=== PATIENT | male | born 1955 | race Caucasian/White ===

== ENCOUNTER 2016-12-30 17:30 | Emergency (ER) | payer OTHER ==
[2016-12-30] MEDS ORDERED: Diphtheria,Pertussis(Acell),Tetanus Vaccine 0.5 ML SDV IM ONE (19:31)
--- NOTE | 2016-12-30 19:33 | EDM.PDOC ---
ED HPI GENERAL MEDICAL PROBLEM - General Chief Complaint: Laceration Stated Complaint: FINGER IS CUT, [id number] Time Seen by Provider: 12/30/16 19:28 Source of Information: Reports: Patient History Limitations: Reports: No Limitations - History of Present Illness INITIAL COMMENTS - FREE TEXT/NARRATIVE: cut by [employer]. bleeding has stopped but tetanus out of date. Left Hand Pain Score (Numeric/FACES): 2 - Related Data Allergies Allergy/AdvReac Type Severity Reaction Status Date / Time No Known Allergies Allergy Verified 12/30/16 17:44 Home Meds: Home Meds Aspirin/Acetaminophen/Caffeine [Janette Migraine Formula Caplet] 2 cap PO DAILY PRN 09/02/13 [History] Tadalafil [Cialis] 20 mg PO DAILY PRN 09/02/13 [History] Aspirin [Halfprin] 81 mg PO BRK 12/30/16 [History] Cyclobenzaprine [Flexeril] 10 mg PO ASDIRECTED PRN 12/30/16 [History] traMADol [Ultram] 50 mg PO ASDIRECTED PRN 12/30/16 [History] Past Medical History HEENT History: Reports: None, Impaired Vision Other HEENT History: wears glasses Cardiovascular History: Reports: None Respiratory History: Reports: None Gastrointestinal History: Reports: Other (See Below) 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 Genitourinary History: Reports: Other (See Below) Other Genitourinary History: ERECTILE DYSFUNCTION Musculoskeletal History: Reports: Back Pain, Chronic Other Musculoskeletal History: INGROWN GREAT TOENAIL BILAT; CHRONIC LOW BACK PAIN MAINTAINED WITH PT Neurological History: Reports: None Psychiatric History: Reports: None Endocrine/Metabolic History: Reports: None Hematologic History: Reports: None Immunologic History: Reports: None Oncologic (Cancer) History: Reports: None Dermatologic History: Reports: None - Infectious Disease History Infectious Disease History: Reports: Chicken Pox, Measles, Mumps - Past Surgical History Head Surgeries/Procedures: Reports: None HEENT Surgical History: Reports: None Cardiovascular Surgical History: Reports: None GI Surgical History: Reports: Colonoscopy, Hernia, Inguinal, Other (See Below) Musculoskeletal Surgical History: Reports: Arthroscopic Knee Social & Family History - Tobacco Use Smoking Status *Q: Never Smoker Used Tobacco, but Quit: No Second Hand Smoke Exposure: No - Caffeine Use Caffeine Use: Reports: Soda - Alcohol Use Days Per Week of Alcohol Use: 2 - Recreational Drug Use Recreational Drug Use: No ED ROS GENERAL - Review of Systems Review Of Systems: ROS reveals no pertinent complaints other than HPI. ED EXAM, SKIN/RASH Exam: See Below Exam Limited By: No Limitations General Appearance: Alert, WD/WN, No Apparent Distress Ears: Hearing Grossly Normal Throat/Mouth: Normal Voice, No Airway Compromise Head: Atraumatic Neck: Non-Tender, Full Range of Motion Respiratory/Chest: No Respiratory Distress Cardiovascular: Regular Rate, Rhythm GI/Abdominal: Soft, Non-Tender Extremities: Other (left 4th dorsal spfl lac' NV wnl, good ROM) Neurological: Alert, Oriented, Normal Cognition, Normal Gait, No Motor/Sensory Deficits Psychiatric: Normal Affect, Normal Mood Skin: Warm, Dry, Normal Color Lymphatic: No Adenopathy ED SKIN PROCEDURES - Laceration/Wound Repair Left Finger Lac/Wound length In cm: 1 (dorasl left finger) Appearance: Superficial, Linear, Clean Distal NVT: Neuro & Vascular Intact, No Tendon Injury Skin Prep: Chlorhexidine (Hibiciens) Exploration/Debridement/Repair: Wound Explored, In a Bloodless Field Closed with: Dermabond Sterile Dressing Applied: Provider Tetanus Status Addressed: Yes Complications: No Course - Vital Signs Last Recorded V/S: Last Vital Signs Temp 36.8 C 12/30/16 17:40 Pulse 97 12/30/16 17:40 Resp 16 12/30/16 17:40 BP 122/82 12/30/16 17:40 Pulse Ox 97 12/30/16 17:40 Departure - Departure Time of Disposition: 19:31 Disposition: Home, Self-Care 01 Condition: Good Clinical Impression: Finger laceration Qualifiers: Encounter type: initial encounter Finger: ring finger Damage to nail status: without damage Foreign body presence: without foreign body Laterality: left Qualified Code(s): S61.215A - Laceration without foreign body of left ring finger without damage to nail, initial encounter - Discharge Information Instructions: Stitches, [place], or Adhesive Wound Closure, [id number] Forms: ED Department Discharge Additional Instructions: 1) keep wound clean dry covered 2) recheck if looks infected
[2016-12-30 20:08] VITALS: BP 120/81
== END 2016-12-30 19:48 | disposition home or self-care (01) ==
LOC: DL.ED 17:30
DX: S61.215A Laceration without foreign body of left ring finger without damage to nail, initial encounter (principal); Z23 Encounter for immunization; Z79.82 Long term (current) use of aspirin; Z79.899 Other long term (current) drug therapy; W45.8XXA Other foreign body or object entering through skin, initial encounter
CPT/HCPCS: 12001; 90471; 90715; 99282

== ENCOUNTER 2020-08-01 09:41 | Emergency (ER) | payer MEDICARE, OTHER ==
[2020-08-01] MEDS ORDERED: diphenhydrAMINE 50 MG/ML SDV IVPUSH ONE (09:49)
[2020-08-01 09:51] VITALS: BP 142/94; PULSE 90
--- NOTE | 2020-08-01 10:58 | CR ---
PROCEDURE INFORMATION: Exam: XR Chest Exam date and time: 08/01/2020 10:43 AM Age: 65 years old Clinical indication: Other: Dysphasia TECHNIQUE: Imaging protocol: XR of the chest Views: 1 view. COMPARISON: No relevant prior studies available. FINDINGS: Lungs: Mid inspiratory effort with resultant low lung volumes. Pleural spaces: Unremarkable. No pleural effusion. No pneumothorax. Heart/Mediastinum: Unremarkable. No cardiomegaly. Bones/joints: Unremarkable. IMPRESSION: No acute findings.
--- NOTE | 2020-08-01 10:58 | CT ---
PROCEDURE INFORMATION: Exam: CT Head Without Contrast Exam date and time: 08/01/2020 10:46 AM Age: 65 years old Clinical indication: Other: Dysphasia TECHNIQUE: Imaging protocol: Computed tomography of the head without contrast. Radiation optimization: All CT scans at this facility use at least one of these dose optimization techniques: automated exposure control; mA and/or kV adjustment per patient size (includes targeted exams where dose is matched to clinical indication); or iterative reconstruction. Other technique: STROKE PROTOCOL was implemented. COMPARISON: No relevant prior studies available. FINDINGS: Brain: Normal. No hemorrhage. Unremarkable white matter. No mass effect. Cerebral ventricles: No ventriculomegaly. Bones/joints: Unremarkable. No acute fracture. Paranasal sinuses: Visualized sinuses are unremarkable. No fluid levels. Mastoid air cells: Visualized mastoid air cells are well aerated. Soft tissues: Unremarkable. IMPRESSION: No acute intracranial abnormality. ASSESSMENT: ASPECTS ([place] Stroke Program Early CT Score) is 10. COMMENTS: If the symptoms that lead to this examination persist or worsen, or there is concern for CVA (which may not manifeston CT for the first 24-48 hours), close interval follow-up MRI (or followup CT if the patient cannot undergo MRI evaluation) could provide additional information; only if clinically indicated.
[2020-08-01 11:10] LABS: ANION GAP 13.2 mEq/L (7-13); CHLORIDE,CL 105 mmol/L (98-107); SODIUM,NA 141 mmol/L (136-145)
[2020-08-01 11:29] LABS: CORONAVIRUS COVID-19 NAA NEGATIVE (NEGATIVE)
[2020-08-01] MEDS ORDERED: methylPREDNISolone Sodium Succinate 125 MG/2 ML SDV IVPUSH ONE (11:44)
--- NOTE | 2020-08-01 11:52 | EDM.PDOC ---
ED HPI GENERAL MEDICAL PROBLEM - General Chief Complaint: Allergic Reaction Stated Complaint: UNABLE TO BREATHE, TONGUE SWELLING Time Seen by Provider: 08/01/20 10:05 Source of Information: Reports: Patient History Limitations: Reports: No Limitations - History of Present Illness INITIAL COMMENTS - FREE TEXT/NARRATIVE: This 65 yo male patient reports to the ED with difficulties swelling and swallowing that started this morning at about [id number]. 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 The patient has no facial droop or one sided weakness. The patient has no history of similar symptoms or previous CVA. Onset: Today Duration: Hour(s):, Constant Location: Reports: Face, Other Quality: Reports: Other Severity: Moderate Improves with: Reports: None Worsens with: Reports: None Context: Reports: Other Associated Symptoms: Reports: No Other Symptoms - Related Data Allergies Allergy/AdvReac Type Severity Reaction Status Date / Time No Known Allergies Allergy Verified 08/01/20 09:49 Home Meds: Home Meds Aspirin/Acetaminophen/Caffeine [Janette Migraine Formula Caplet] 2 cap PO DAILY PRN 09/02/13 [History] tadalafiL [Cialis] 20 mg PO DAILY PRN 09/02/13 [History] Aspirin [Halfprin] 81 mg PO BRK 12/30/16 [History] Cyclobenzaprine [Flexeril] 10 mg PO ASDIRECTED PRN 12/30/16 [History] traMADol [Ultram] 50 mg PO ASDIRECTED PRN 12/30/16 [History] Past Medical History HEENT History: Reports: None, Impaired Vision Other HEENT History: wears glasses Cardiovascular History: Reports: None Respiratory History: Reports: None Gastrointestinal History: Reports: Other (See Below) 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 Genitourinary History: Reports: Other (See Below) Other Genitourinary History: ERECTILE DYSFUNCTION Musculoskeletal History: Reports: Back Pain, Chronic Other Musculoskeletal History: INGROWN GREAT TOENAIL BILAT; CHRONIC LOW BACK PAIN MAINTAINED WITH PT Neurological History: Reports: None Psychiatric History: Reports: None Endocrine/Metabolic History: Reports: None Hematologic History: Reports: None Immunologic History: Reports: None Oncologic (Cancer) History: Reports: None Dermatologic History: Reports: None - Infectious Disease History Infectious Disease History: Reports: Chicken Pox, Measles, Mumps - Past Surgical History Head Surgeries/Procedures: Reports: None HEENT Surgical History: Reports: None Cardiovascular Surgical History: Reports: None GI Surgical History: Reports: Colonoscopy, Hernia, Inguinal, Other (See Below) Other GI Surgeries/Procedures: FLEXIBLE SIGMOIDOSCOPY Male Surgical History: Reports: Vasectomy Musculoskeletal Surgical History: Reports: Arthroscopic Knee Other Musculoskeletal Surgeries/Procedures:: ROTATOR CUFF REPAIR RIGHT; KNEE ARTHROSCOPY RIGHT; RIGHT GREAT TOENAIL REMOVAL; INGUINAL LYMPH NODE BIOPSY. Surgery R foot w/boot Social & Family History - Tobacco Use Tobacco Use Status *Q: Never Tobacco User Second Hand Smoke Exposure: No - Caffeine Use Caffeine Use: Reports: None ED ROS ALLERGIC REACTION - Review of Systems Review Of Systems: Comprehensive ROS is negative, except as noted in HPI. ED EXAM GENERAL NO PERIP PULSE - Physical Exam Exam: See Below Exam Limited By: No Limitations General Appearance: Alert, WD/WN, Mild Distress Eye Exam: Bilateral Eye: EOMI, Normal Inspection, PERRL Ears: Normal External Exam, Normal Canal, Hearing Grossly Normal, Normal TMs Nose: Normal Inspection, Normal Mucosa, No Blood Throat/Mouth: Normal Inspection, Normal Lips, Normal Teeth, Normal Gums, Normal Voice, No Airway Compromise, Other (redness of posterior pharynx) Head: Atraumatic, Normocephalic Neck: Normal Inspection, Supple, Non-Tender, Full Range of Motion Respiratory/Chest: No Respiratory Distress, Lungs Clear, Normal Breath Sounds, No Accessory Muscle Use, Chest Non-Tender Cardiovascular: Normal Peripheral Pulses, Regular Rate, Rhythm, No Edema, No Gallop, No JVD, No Murmur, No Rub GI/Abdominal: Normal Bowel Sounds, Soft, Non-Tender, No Organomegaly, No Distention, No Abnormal Bruit, No Mass (Male) Exam: Deferred Rectal (Males) Exam: Deferred Back Exam: Normal Inspection, Full Range of Motion, NT Extremities: Normal Inspection, Normal Range of Motion, Non-Tender, Normal Capillary Refill, No Pedal Edema Neurological: Alert, Oriented, CN II-XII Intact, Normal Cognition, Normal Gait, Normal Reflexes, No Motor/Sensory Deficits Psychiatric: Normal Affect, Normal Mood Skin Exam: Warm, Dry, Intact, Normal Color, No Rash Lymphatic: No Adenopathy Course - Vital Signs Last Recorded V/S: Last Vital Signs Temp 36.6 C 08/01/20 09:48 Pulse 90 08/01/20 09:48 Resp 16 08/01/20 09:48 BP 142/94 H 08/01/20 09:48 Pulse Ox 98 08/01/20 09:48 - Orders/Labs/Meds Orders: Active Orders 24 hr Category Date Time Status CULTURE STREP A CONFIRMATION [] Stat Lab 08/01/20 10:37 Results STREP SCRN A RAPID W CULT CONF [] Stat Lab 08/01/20 10:40 Ordered Labs: Laboratory Tests 08/01/20 08/01/20 08/01/20 Range/Units 10:37 10:45 10:45 WBC 7.4 (5.0-10.0) 10^3/uL RBC 4.78 (4.6-6.2) 10^6/uL Hgb 14.7 (14.0-18.0) g/dL Hct 42.7 (40.0-54.0) % MCV 89.3 (80-100) fL MCH 30.8 (27.0-34.0) pg MCHC 34.4 (33.0-35.0) g/dL Plt Count 235 (150-450) 10^3/uL Neut % (Auto) 64.8 (42.2-75.2) % Lymph % (Auto) 22.3 (20.5-50.1) % Bertie % (Auto) 7.9 (2-8) % Eos % (Auto) 3.9 H (1.0-3.0) % Baso % (Auto) 1.1 H (0.0-1.0) % Sodium 141 (136-145) mmol/L Potassium 4.2 (3.5-5.1) mmol/L Chloride 105 (98-107) mmol/L Carbon Dioxide 27 (21-32) mmol/L Anion Gap 13.2 H (7-13) mEq/L BUN 16 (7-18) mg/dL Creatinine 1.00 (0.70-1.30) mg/dL Est Cr Clr Drug Dosing 64.69 mL/min Estimated GFR (MDRD) > 60 BUN/Creatinine Ratio 16.0 (No establ ref range) Glucose 93 (74-99) mg/dL Calcium 8.5 (8.5-10.1) mg/dL Total Bilirubin 0.9 (0.2-1.0) mg/dL AST 21 (15-37) U/L ALT 46 (16-63) U/L Alkaline Phosphatase 99 (46-116) U/L C-Reactive Protein < 0.2 (0.0-0.9) mg/dL Total Protein 7.3 (6.4-8.2) g/dL Albumin 3.7 (3.4-5.0) g/dL Globulin 3.6 Albumin/Globulin Ratio 1.0 Influenza Type A RNA Negative (NEGATIVE) Influenza Type B RNA Negative (NEGATIVE) SARS-CoV-2 RNA (NORA) Negative (NEGATIVE) Meds: Medications Discontinued Medications Generic Name Dose Route Start Last Admin Trade Name Freq PRN Reason Stop Dose Admin Diphenhydramine HCl 50 mg 08/01/20 09:49 08/01/20 09:54 Diphenhydramine 50 Mg/Ml Sdv IVPUSH 08/01/20 09:50 50 mg ONETIME ONE Administration Methylprednisolone Sodium Succinate 125 mg 08/01/20 11:44 Methylprednisolone Sodium Succinate 125 Mg/2 Ml Sdv IVPUSH 08/01/20 11:45 ONETIME ONE Departure - Departure Time of Disposition: 11:55 Disposition: Home, Self-Care 01 Condition: Fair Clinical Impression: Dyspnea Qualifiers: Dyspnea type: unspecified Qualified Code(s): R06.00 - Dyspnea, unspecified - Discharge Information *PRESCRIPTION DRUG MONITORING PROGRAM REVIEWED*: Not Applicable *COPY OF PRESCRIPTION DRUG MONITORING REPORT IN PATIENT DORIAN: Not Applicable Care Plan Goals: The patient was advised of the examination, lab, x-ray and CT results during the visit. The patient was given an IV dose of Benadryl and SoluMedrol during the visit. The patient was discharged with a script for Prednisone (20 mg) #10 to take 2 by mouth daily for 5 days. If the patient has any additional symptoms or concerns, the patient should either return to the emergency department or visit his primary care facility. Sepsis Event Note (ED) - Evaluation Sepsis Screening Result: No Definite Risk - Focused Exam Vital Signs: Vital Signs Temp Pulse Resp BP Pulse Ox 08/01/20 09:48 36.6 C 90 16 142/94 H 98 - My Orders Last 24 Hours: My Active Orders 08/01/20 10:37 CULTURE STREP A CONFIRMATION [RM] Stat 08/01/20 10:40 STREP SCRN A RAPID W CULT CONF [RM] Stat - Assessment/Plan Last 24 Hours: My Active Orders 08/01/20 10:37 CULTURE STREP A CONFIRMATION [RM] Stat 08/01/20 10:40 STREP SCRN A RAPID W CULT CONF [RM] Stat
== END 2020-08-01 12:10 | disposition home or self-care (01) ==
LOC: DL.ED 09:41
DX: R06.00 Dyspnea, unspecified (principal); Z20.822 Contact with and (suspected) exposure to COVID-19
CPT/HCPCS: 0240U; 36415; 70450; 71045; 80053; 85025; 86140; 87081; 87430; 96374; 96375; 99284; J1200; J2930

== ENCOUNTER 2020-08-02 08:13 | Inpatient (IN) | payer MEDICARE, OTHER ==
[2020-08-02 09:51] LABS: ANION GAP 13.7 mEq/L (7-13); CHLORIDE,CL 107 mmol/L (98-107); SODIUM,NA 143 mmol/L (136-145)
--- NOTE | 2020-08-02 09:54 | EDM.PDOC ---
ED HPI GENERAL MEDICAL PROBLEM - General Chief Complaint: General Stated Complaint: LOST MOBILITY OF RIGHT HAND Time Seen by Provider: 08/02/20 08:45 Source of Information: Reports: Patient, RN, RN Notes Reviewed History Limitations: Reports: No Limitations - History of Present Illness INITIAL COMMENTS - FREE TEXT/NARRATIVE: Patient is a 65-year-old male who presents to ER with complaint of right-handed weakness. Patient was seen in the ER yesterday with complaint of swelling of the tongue and difficulty swallowing. Yesterday labs were benign, head CT negative. Patient given Solu-Medrol and Benadryl with some improvement. Today states tongue still feels somewhat swollen but is improved, no difficulty swallowing. Only complaint is weakness of the right hand and inability to do day-to-day chores with the right hand. Denies any numbness or tingling. Is able to hold the arm out and in front of him for 10 seconds or longer without drift. Otherwise NIHSS negative. 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 Genitourinary History: Reports: Other (See Below) Other Genitourinary History: ERECTILE DYSFUNCTION Musculoskeletal History: Reports: Back Pain, Chronic Other Musculoskeletal History: INGROWN GREAT TOENAIL BILAT; CHRONIC LOW BACK PAIN MAINTAINED WITH PT Neurological History: Reports: None Psychiatric History: Reports: None Endocrine/Metabolic History: Reports: None Hematologic History: Reports: None Immunologic History: Reports: None Oncologic (Cancer) History: Reports: None Dermatologic History: Reports: None - Infectious Disease History Infectious Disease History: Reports: Chicken Pox, Measles, Mumps - Past Surgical History Head Surgeries/Procedures: Reports: None HEENT Surgical History: Reports: None Cardiovascular Surgical History: Reports: None GI Surgical History: Reports: Colonoscopy, Hernia, Inguinal, Other (See Below) Other GI Surgeries/Procedures: FLEXIBLE SIGMOIDOSCOPY Male Surgical History: Reports: Vasectomy Musculoskeletal Surgical History: Reports: Arthroscopic Knee Other Musculoskeletal Surgeries/Procedures:: ROTATOR CUFF REPAIR RIGHT; KNEE ARTHROSCOPY RIGHT; RIGHT GREAT TOENAIL REMOVAL; INGUINAL LYMPH NODE BIOPSY. Surgery R foot w/boot Social & Family History - Family History Family Medical History: No Pertinent Family History - Tobacco Use Tobacco Use Status *Q: Never Tobacco User Second Hand Smoke Exposure: No - Caffeine Use Caffeine Use: Reports: None - Recreational Drug Use Recreational Drug Use: No ED ROS GENERAL - Review of Systems Review Of Systems: Comprehensive ROS is negative, except as noted in HPI. ED EXAM, GENERAL - Physical Exam Exam: See Below Exam Limited By: No Limitations General Appearance: Alert, WD/WN, No Apparent Distress, Anxious Eye Exam: Bilateral Eye: EOMI, Normal Inspection, PERRL (3, brisk) Ears: Normal External Exam, Hearing Grossly Normal Nose: Normal Inspection Throat/Mouth: Normal Inspection, Normal Lips, Normal Teeth, Normal Gums, Normal Oropharynx, Normal Voice, No Airway Compromise Head: Atraumatic, Normocephalic Neck: Normal Inspection, Supple, Non-Tender, Full Range of Motion Respiratory/Chest: No Respiratory Distress, Lungs Clear, Normal Breath Sounds, No Accessory Muscle Use, Chest Non-Tender Cardiovascular: Normal Peripheral Pulses, Regular Rate, Rhythm, No Edema, No Gallop, No JVD, No Murmur, No Rub Peripheral Pulses: 2+: Radial (L), Radial (R) GI/Abdominal: Normal Bowel Sounds, Soft, Non-Tender (Male) Exam: Deferred Rectal (Males) Exam: Deferred Back Exam: Normal Inspection, Full Range of Motion, NT Extremities: Normal Inspection, Normal Range of Motion, Non-Tender, No Pedal Edema, Normal Capillary Refill, Other (Wearing a walking boot on right foot for bunion surgery, right hand weakness) Neurological: Alert, Oriented, CN II-XII Intact, Normal Cognition, Normal Gait, Normal Reflexes, No Motor/Sensory Deficits Psychiatric: Normal Affect, Normal Mood, Anxious Skin Exam: Warm, Dry, Intact, Normal Color, No Rash Lymphatic: No Adenopathy Course - Vital Signs Last Recorded V/S: Last Vital Signs Temp 98.8 F 08/02/20 08:26 Pulse 95 08/02/20 08:26 Resp 18 08/02/20 08:26 BP 148/97 H 08/02/20 08:26 Pulse Ox 97 08/02/20 08:26 - Orders/Labs/Meds Orders: Active Orders 24 hr Category Date Time Status UA W/ZACKERY RFLX IF INDICATED [URIN] Stat Lab 08/02/20 09:15 Ordered Medication Orders Acetaminophen (Acetaminophen 325 Mg Tab) 650 mg PO Q4H PRN PRN Reason: Pain (Mild 1-3)/fever Aspirin (Aspirin 81 Mg Tab.Chew) 81 mg PO DAILY [facility] Aspirin (Aspirin 325 Mg Tab.Ec) 325 mg PO ONETIME ONE Stop: 08/02/20 11:16 Clopidogrel Bisulfate (Clopidogrel 75 Mg Tab) 75 mg PO DAILY [facility] Enoxaparin Sodium (Enoxaparin 40 Mg/0.4 Ml Syringe) 40 mg SUBCUT DAILY [facility] Labs: Laboratory Tests 08/02/20 08/02/20 08/02/20 Range/Units 09:23 09:23 09:23 WBC 16.0 H (5.0-10.0) 10^3/uL RBC 4.73 (4.6-6.2) 10^6/uL Hgb 14.4 (14.0-18.0) g/dL Hct 42.2 (40.0-54.0) % MCV 89.2 (80-100) fL MCH 30.4 (27.0-34.0) pg MCHC 34.1 (33.0-35.0) g/dL Plt Count 240 (150-450) 10^3/uL Neut % (Auto) 81.5 H (42.2-75.2) % Lymph % (Auto) 12.3 L (20.5-50.1) % Lares % (Auto) 5.7 (2-8) % Eos % (Auto) 0.2 L (1.0-3.0) % Baso % (Auto) 0.3 (0.0-1.0) % PT 10.4 (9.0-12.0) SEC INR 1.0 (0.9-1.2) Sodium 143 (136-145) mmol/L Potassium 3.7 (3.5-5.1) mmol/L Chloride 107 (98-107) mmol/L Carbon Dioxide 26 (21-32) mmol/L Anion Gap 13.7 H (7-13) mEq/L BUN 18 (7-18) mg/dL Creatinine 0.97 (0.70-1.30) mg/dL Est Cr Clr Drug Dosing 78.71 mL/min Estimated GFR (MDRD) > 60 BUN/Creatinine Ratio 18.6 (No establ ref range) Glucose 131 H (74-99) mg/dL Calcium 8.7 (8.5-10.1) mg/dL Total Bilirubin 1.0 (0.2-1.0) mg/dL AST 23 (15-37) U/L ALT 61 (16-63) U/L Alkaline Phosphatase 95 (46-116) U/L Troponin I < 0.017 (0.000-0.056) ng/mL Total Protein 7.0 (6.4-8.2) g/dL Albumin 3.4 (3.4-5.0) g/dL Globulin 3.6 Albumin/Globulin Ratio 0.9 Meds: Medications Generic Name Dose Route Start Last Admin Trade Name Freq PRN Reason Stop Dose Admin Acetaminophen 650 mg 08/02/20 10:27 Acetaminophen 325 Mg Tab PO Q4H PRN Pain (Mild 1-3)/fever Aspirin 81 mg 08/03/20 09:00 Aspirin 81 Mg Tab.Chew PO DAILY [facility] Aspirin 325 mg 08/02/20 11:15 Aspirin 325 Mg Tab.Ec PO 08/02/20 11:16 ONETIME ONE Clopidogrel Bisulfate 75 mg 08/03/20 09:00 Clopidogrel 75 Mg Tab PO DAILY [facility] Enoxaparin Sodium 40 mg 08/03/20 09:00 Enoxaparin 40 Mg/0.4 Ml Syringe SUBCUT DAILY [facility] Discontinued Medications Generic Name Dose Route Start Last Admin Trade Name Freq PRN Reason Stop Dose Admin Clopidogrel Bisulfate 300 mg 08/02/20 10:27 Clopidogrel 75 Mg Tab PO 08/02/20 10:28 ONETIME ONE - Re-Assessments/Exams Free Text/Narrative Re-Assessment/Exam: 08/02/20 11:16 Discuss[address] patient case with Dr. Ana Merino at the [facility]. She states she would be declining the patient for transfer and would like the patient transferred to a higher level of care with Neurology. Discussed patient case with Dr. Bustillo, Neurologist at [facility], who states the patient may have had a minor stroke. She states the patient could stay at [facility] in [place] and have an MRI performed and be monitored. If any changes the patient will be transferred to [facility]. Discussed patient case with Dr. Veras who agreed to accept the patient for acute admission. Also discussed the patient case with Ijeoma at the [facility] who is aware that Neurology has been involved and will work on payment. Departure - Departure Time of Disposition: 09:53 Disposition: Admitted As Inpatient 64 Condition: Good Clinical Impression: Stroke-like symptoms, Right hand weakness - Discharge Information *PRESCRIPTION DRUG MONITORING PROGRAM REVIEWED*: No *COPY OF PRESCRIPTION DRUG MONITORING REPORT IN PATIENT DORIAN: No Sepsis Event Note (ED) - Evaluation Sepsis Screening Result: No Definite Risk - Focused Exam Vital Signs: Vital Signs Temp Pulse Resp BP Pulse Ox 08/02/20 08:26 98.8 F 95 18 148/97 H 97 - My Orders Last 24 Hours: My Active Orders 08/02/20 09:15 UA W/ZACKERY RFLX IF INDICATED [URIN] Stat - Assessment/Plan Last 24 Hours: My Active Orders 08/02/20 09:15 UA W/ZACKERY RFLX IF INDICATED [URIN] Stat
[2020-08-02] MEDS ORDERED: Acetaminophen 325 MG Tab PO PRN (10:27)
[2020-08-02] MEDS ORDERED: Clopidogrel 75 MG Tab PO ONE (10:27)
[2020-08-02] MEDS ORDERED: Aspirin 325 MG Tab.EC PO ONE (11:15)
--- NOTE | 2020-08-02 11:35 | MR ---
PROCEDURE INFORMATION: Exam: MR Head Without Contrast Exam date and time: 08/02/2020 10:43 AM Age: 65 years old Clinical indication: Weakness, extremity; Right; Additional info: Acute CVA TECHNIQUE: Imaging protocol: MR of the head without contrast. COMPARISON: CT Head wo Cont 08/01/2020 10:46 AM FINDINGS: Brain: There are areas of restricted diffusion in left frontal lobe including precentral gyrus measuring up to 11 mm. There is no acute hemorrhage. There is no mass effect or midline shift. 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 Cerebral ventricles: Normal. No ventriculomegaly. Bones/joints: Unremarkable as visualized. Paranasal sinuses: There is small amount of mucosal thickening in ethmoid air cells. Mastoid air cells: No significant mastoid effusion. Orbital cavity: Unremarkable. Soft tissues: Unremarkable as visualized. Other vasculature: Flow voids in cervical bullous and cerebral venous structures appear patent. IMPRESSION: Acute infarct in left frontal lobe including precentral gyrus. No hemorrhage.
--- NOTE | 2020-08-02 16:32 | US ---
EXAMINATION: Carotid Comp SEX: Male AGE: 65 years CLINICAL HISTORY: 65-year-old male hospitalized with speech "difficulty" and right-sided weakness (acute CVA). CT head (01 August 2020) revealed "no acute intracranial abnormality" but subsequent MRI (02 August 2020) demonstrated "acute infarct, precentral gyrus, left frontal lobe. No hemorrhage". Interpretation: 1. No appreciable echogenic, shadowing intimal plaque or thrombus either common or internal carotid artery (neck). 2. Systolic flow velocity right common carotid artery 110 cm/s; right internal carotid artery 126 cm/s; and right external carotid artery 126 cm/s. IC/CC ratio on the right 1.15. 3. Peak systolic flow velocity left common carotid artery 139 cm/s; left internal carotid artery 72.5 cm/s; and left external carotid artery 98.5 cm/s. IC/CC ratio on the left 0.52. 4. Normal antegrade vertebral artery flow demonstrated on the right (no flow identified in the left vertebral artery). CONCLUSION: No hemodynamically significant or surgical stenosis documented sonographically in either common or internal carotid artery on today's exam. No flow left vertebral artery.
--- NOTE | 2020-08-02 18:30 | PCM.HP ---
H&P History of Present Illness - General Date of Service: 08/02/20 Admit Problem/Dx: Admission Diagnosis/Problem Admission Diagnosis/Problem Stroke-like symptoms - History of Present Illness Initial Comments - Free Text/Narative: 65M who denies any pmh p/w right hand weakness. Pt symptoms onset yesterday morning >24 prior to todays presentation. He was seen in the ED due to 'tongue swelling'. Pt felt like his tongue was swollen and experienced slurred speech. Careful questioning also reveals that pt experienced aphasia. In the ED he received benadryl and steroids for the 'tongue swelling'. He admits that while signing his discharge paperwork he felt like he had right hand weakness to the point that his signature was illegible. He kept this to himself however. One home he found he cannot use the computer mouse or his phone. Today he returns to the ED. - Related Data Allergies/Adverse Reactions: Allergies Allergy/AdvReac Type Severity Reaction Status Date / Time No Known Allergies Allergy Verified 08/02/20 10:37 Home Medications: Home Meds tadalafiL [Cialis] 20 mg PO DAILY PRN 09/02/13 [History] Ibuprofen 400 mg PO BID PRN 08/02/20 [History] predniSONE [Prednisone] 40 mg PO DAILY 08/02/20 [History] Past Medical History HEENT History: Reports: None, Impaired Vision Other HEENT History: wears glasses Cardiovascular History: Reports: None Respiratory History: Reports: None Gastrointestinal History: Reports: Other (See Below) 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 Genitourinary History: Reports: Other (See Below) Other Genitourinary History: ERECTILE DYSFUNCTION Musculoskeletal History: Reports: Back Pain, Chronic Other Musculoskeletal History: INGROWN GREAT TOENAIL BILAT; CHRONIC LOW BACK PAIN MAINTAINED WITH PAIN MANAGEMENT("SHOTS IN BACK NEEDED") Neurological History: Reports: None Psychiatric History: Reports: None Endocrine/Metabolic History: Reports: None Hematologic History: Reports: None Immunologic History: Reports: None Oncologic (Cancer) History: Reports: None Dermatologic History: Reports: None - Infectious Disease History Infectious Disease History: Reports: Chicken Pox, Measles, Mumps - Past Surgical History Head Surgeries/Procedures: Reports: None HEENT Surgical History: Reports: None Cardiovascular Surgical History: Reports: None GI Surgical History: Reports: Colonoscopy, Hernia, Inguinal, Other (See Below) Other GI Surgeries/Procedures: FLEXIBLE SIGMOIDOSCOPY Male Surgical History: Reports: Vasectomy Musculoskeletal Surgical History: Reports: Arthroscopic Knee Other Musculoskeletal Surgeries/Procedures:: ROTATOR CUFF REPAIR RIGHT; KNEE ARTHROSCOPY RIGHT; RIGHT GREAT TOENAIL REMOVAL; INGUINAL LYMPH NODE BIOPSY. Surgery R foot w/boot Oncologic Surgical History: Reports: Other (See Below) Other Oncologic Surgeries/Procedures: Precancerous tissue removed from scalp. Social & Family History - Family History Family Medical History: No Pertinent Family History - Tobacco Use Tobacco Use Status *Q: Never Tobacco User Second Hand Smoke Exposure: No - Caffeine Use Caffeine Use: Reports: Soda - Alcohol Use Days Per Week of Alcohol Use: 7 Number of Drinks Per Day: 1 Total Drinks Per Week: 7 Date of Last Drink: 07/28/20 - Recreational Drug Use Recreational Drug Use: No H&P Review of Systems - Review of Systems: Review Of Systems: See Below General: Denies: Fever, Chills, Malaise, Weakness HEENT: Denies: Headaches Pulmonary: Denies: Shortness of Breath, Wheezing Cardiovascular: Denies: Chest Pain Gastrointestinal: Denies: Abdominal Pain Genitourinary: Denies: Dysuria Musculoskeletal: Denies: Neck Pain Skin: Denies: Jaundice Psychiatric: Denies: Confusion Neurological: Reports: Trouble Speaking, Weakness (right chief operator reformer). Denies: Dizziness Hematologic/Lymphatic: Denies: Easy Bleeding Immunologic: Denies: Food Allergy Exam - Exam Exam: See Below - Vital Signs Vital Signs: Last Vital Signs Temp 98.2 F 08/02/20 16:00 Pulse 92 08/02/20 11:29 Resp 20 08/02/20 16:00 BP 149/90 H 08/02/20 16:00 Pulse Ox 98 08/02/20 16:00 Weight: 179 lb 6.4 oz - Exam Quality Assessment: No: Supplemental Oxygen General: Alert, Oriented, Cooperative HEENT: Conjunctiva Clear, Mucosa Moist & [place] Neck: Supple Lungs: Clear to Auscultation, Normal Respiratory Effort Cardiovascular: Regular Rate, Regular Rhythm GI/Abdominal Exam: Normal Bowel Sounds, Soft, Non-Tender, No Distention Back Exam: Normal Inspection Extremities: No Pedal Edema Skin: Warm, Dry Neurological: Normal Speech Neuro Extensive - Mental Status: Oriented x3, Normal Mood/Affect, Normal Cognition, Memory Intact Neuro Extensive - Motor, Sensory, Reflexes: Abnormal Gait (drags RLE), Pronator Drift (R), Other (5/5 strenght all over except 4/5 right hand chief operator reformer). No: Ataxia, Dysarthria, Expressive Aphasia, Tremor Psychiatric: Alert, Normal Affect, Normal Mood - Patient Data Lab Results Last 24 hrs: Laboratory Results - last 24 hr 08/02/20 08/02/20 08/02/20 Range/Units 09:23 09:23 09:23 WBC 16.0 H (5.0-10.0) 10^3/uL RBC 4.73 (4.6-6.2) 10^6/uL Hgb 14.4 (14.0-18.0) g/dL Hct 42.2 (40.0-54.0) % MCV 89.2 (80-100) fL MCH 30.4 (27.0-34.0) pg MCHC 34.1 (33.0-35.0) g/dL Plt Count 240 (150-450) 10^3/uL Neut % (Auto) 81.5 H (42.2-75.2) % Lymph % (Auto) 12.3 L (20.5-50.1) % [place] % (Auto) 5.7 (2-8) % Eos % (Auto) 0.2 L (1.0-3.0) % Baso % (Auto) 0.3 (0.0-1.0) % PT 10.4 (9.0-12.0) SEC INR 1.0 (0.9-1.2) Sodium 143 (136-145) mmol/L Potassium 3.7 (3.5-5.1) mmol/L Chloride 107 (98-107) mmol/L Carbon Dioxide 26 (21-32) mmol/L Anion Gap 13.7 H (7-13) mEq/L BUN 18 (7-18) mg/dL Creatinine 0.97 (0.70-1.30) mg/dL Est Cr Clr Drug Dosing 78.71 mL/min Estimated GFR (MDRD) > 60 BUN/Creatinine Ratio 18.6 (No establ ref range) Glucose 131 H (74-99) mg/dL Calcium 8.7 (8.5-10.1) mg/dL Total Bilirubin 1.0 (0.2-1.0) mg/dL AST 23 (15-37) U/L ALT 61 (16-63) U/L Alkaline Phosphatase 95 (46-116) U/L Troponin I < 0.017 (0.000-0.056) ng/mL Total Protein 7.0 (6.4-8.2) g/dL Albumin 3.4 (3.4-5.0) g/dL Globulin 3.6 Albumin/Globulin Ratio 0.9 Result Diagrams: 08/02/20 09:23 08/02/20 09:23 Problem List Initiated/Reviewed/Updated: No Orders Last 24hrs: Active Orders 24 hr Category Date Time Status Admission Diagnosis [ADT] Stat ADT 08/02/20 09:51 Ordered Admission Status [Patient Status] [ADT] Routine ADT 08/02/20 09:51 Active Patient Status [ADT] Routine ADT 08/02/20 10:27 Active Cardiac Monitoring [RC] 08,20 Care 08/02/20 10:31 Active Oxygen Therapy [RC] .PRN Care 08/02/20 10:27 Active Up ad Gloria [RC] ASDIRECTED Care 08/02/20 10:27 Active VTE/DVT Education [RC] PER UNIT ROUTINE Care 08/02/20 10:27 Active Vital Signs [RC] 00,04,08,12,16,20 Care 08/02/20 10:27 Active OT Evaluation and Treatment [CONS] Routine Cons 08/02/20 10:27 Active PT Evaluation and Treatment [CONS] Routine Cons 08/02/20 10:27 Active Heart Healthy Diet [DIET] Diet 08/02/20 Lunch Active Echo Comp wo Cont [US] Routine Exams 08/02/20 10:27 Ordered BASIC METABOLIC PANEL,BMP [CHEM] AM Lab 08/03/20 05:11 Ordered GLYCOSYLATED HEMOGLOBIN,HGBA1C [CHEM] AM Lab 08/03/20 05:11 Ordered LIPID PANEL [CHEM] AM Lab 08/03/20 05:11 Ordered Acetaminophen [TylenoL] Med 08/02/20 10:27 Active 650 mg PO Q4H PRN Aspirin Med 08/03/20 09:00 Active 81 mg PO DAILY Clopidogrel [Plavix] Med 08/03/20 09:00 Active 75 mg PO DAILY Enoxaparin [Lovenox] Med 08/03/20 09:00 Active 40 mg SUBCUT DAILY atorvaSTATin [Lipitor] Med 08/02/20 21:00 Active 80 mg PO BEDTIME Resuscitation Status Routine Resus Stat 08/02/20 10:27 Ordered Medication Orders Acetaminophen (Acetaminophen 325 Mg Tab) 650 mg PO Q4H PRN PRN Reason: Pain (Mild 1-3)/fever Aspirin (Aspirin 81 Mg Tab.Chew) 81 mg PO DAILY KIARA Atorvastatin Calcium (Atorvastatin 20 Mg Tab) 80 mg PO BEDTIME KIARA Clopidogrel Bisulfate (Clopidogrel 75 Mg Tab) 75 mg PO DAILY KIARA Enoxaparin Sodium (Enoxaparin 40 Mg/0.4 Ml Syringe) 40 mg SUBCUT DAILY KIARA Assessment/Plan Comment:: #acute CVA - confirmed on MRI - defer CTA to r/o ZAMBIAN due to >24h since presentation - NIH stroke scale 2 - start statin, asa, plavix - check lipids, A1c, echo, carotids, tele monitoring - PT/OT eval PPX - LMWH Full code
[2020-08-02] MEDS ORDERED: atorvaSTATin 20 MG Tab PO SCH (21:00)
[2020-08-03 06:54] LABS: ANION GAP 14.1 mEq/L (7-13); CHLORIDE,CL 107 mmol/L (98-107); HEMOGLOBIN A1C 5.4 % (<5.7); SODIUM,NA 143 mmol/L (136-145)
[2020-08-03] MEDS ORDERED: Enoxaparin 40 MG/0.4 ML Syringe SUBCUT SCH (09:00)
[2020-08-03] MEDS ORDERED: Aspirin 81 MG Tab.Chew PO SCH (09:00)
[2020-08-03] MEDS ORDERED: Clopidogrel 75 MG Tab PO SCH (09:00)
[2020-08-03 10:07] VITALS: BP 143/86; PULSE 85
== END 2020-08-03 12:52 | disposition home or self-care (01) | DRG 66 ==
LOC: DL.ED 08:13 → DL.MS 09:51 → DL.ED 09:57
PROVIDERS: ADMIT Internal Medicine; ATTEND Internal Medicine
DX: R53.1 Weakness (principal); R29.818 Other symptoms and signs involving the nervous system; I63.9 Cerebral infarction, unspecified; R29.702 NIHSS score 2; R47.81 Slurred speech; M54.9 Dorsalgia, unspecified; G83.21 Monoplegia of upper limb affecting right dominant side; H54.7 Unspecified visual loss; R13.10 Dysphagia, unspecified; G89.29 Other chronic pain; M54.5 Low back pain; N52.9 Male erectile dysfunction, unspecified; Z79.52 Long term (current) use of systemic steroids; Z79.899 Other long term (current) drug therapy
CPT/HCPCS: 36415; 70551; 80048; 80053; 80061; 83036; 84484; 85025; 85610; 93005; 93306; 93880; 97162-GP; 97165-GO; 97530-GO; 99284; A9270-GY; J1650

== ENCOUNTER 2025-03-28 14:09 | Emergency (ER) | payer OTHER ==
[2025-03-28 16:43] VITALS: BP 144/108; PULSE 87
== END 2025-03-28 14:51 | disposition home or self-care (01) ==
LOC: DL.ED 14:09
DX: T81.41XA Infection following a procedure, superficial incisional surgical site, initial encounter (principal); Z79.82 Long term (current) use of aspirin; Z79.02 Long term (current) use of antithrombotics/antiplatelets; Z79.899 Other long term (current) drug therapy
CPT/HCPCS: 99283